=== PATIENT | female | born 1950 | race Caucasian/White ===

== ENCOUNTER → 2019-04-11 | Outpatient (CLI) | payer MEDICARE, OTHER | END | disposition home or self-care (01) | LOC: SHCH 13:00 | PROVIDERS: ATTEND Internal Medicine Cardiovascular Disease | DX: I67.9 Cerebrovascular disease, unspecified (principal) | CPT/HCPCS: 93880 ==

== ENCOUNTER 2021-02-03 06:52 | Day surgery (SDC) | payer MEDICARE, OTHER ==
[2021-01-24 14:03] VITALS: BP 137/70
[2021-01-25 12:43] LABS: BASOPHILS % (AUTO) 0.9 % (0.0-5.0); EOSINOPHILS % (AUTO) 1.4 % (0.0-8.0); HEMATOCRIT 41.9 % (36-48); LYMPHOCYTES % (AUTO) 26.3 % (21.0-51.0); MEAN CORPUSCULAR HEMOGLOBIN 29.7 pg (27.0-33.0); MEAN CORPUSCULAR HGB CONC 31.3 g/dL (32.0-36.0); MONOCYTES % (AUTO) 8.3 % (3.0-13.0); NEUTROPHILS % (AUTO) 62.5 % (40.0-77.0); PLATELET COUNT (AUTO) 286 K/uL (130-400); RED BLOOD CELL COUNT(AUTO) 4.41 MIL/uL (4.00-5.50); RED CELL DISTRIBUTION WIDTH 14.4 % (11.0-15.5)
[2021-01-25 12:54] LABS: CREATININE 0.7 mg/dL (0.5-1.5); POTASSIUM 4.3 mmol/L (3.5-5.1)
[2021-01-25 13:12] LABS: INR 0.91 (0.85-1.15)
[2021-01-25 13:13] LABS: PARTIAL THROMBOPLASTIN TIME 24.8 SEC (26.3-35.5)
[~2021-02-03] VITALS: Ht 152.4 cm; Wt 65.3 kg
[2021-02-03] VITALS (9 sets, daily range): BP systolic 103–141; BP diastolic 53–78
[~2021-02-03 06:52] MED LIST: AMLO-257 PO; ATOR-2 PO; BACL10TA PO; BISA10SU11 RC; BRIM5DRO OP; DEXT1DRO OP; FLUO20CA30 PO; HYDR12.54 PO; IBUP-2784 PO; LEVO88CA4 PO; MAGN400O17 PO; MECL-160 PO; MEMA5TAB42 PO; METO-409 PO; ONDA4TAB10 PO; cholecalciferol PO
[2021-02-03] MEDS ORDERED: 0.9%NACL 1000ML 1,000 ML IV ONE (07:59)
[2021-02-03] MEDS ORDERED: HEPARIN 10,000 UNIT/10ML (1,000 UNIT/ML) VIAL ONE (09:06)
[2021-02-03] MEDS ORDERED: LIDOCAINE HCL 400MG/20ML VIAL ONE (09:07)
[2021-02-03] MEDS ORDERED: MIDAZOLAM HCL 1 MG/ML 2ML VIAL ONE ×2 (09:07→11:03)
[2021-02-03] MEDS ORDERED: MEPERIDINE-PF 25 MG/ML SYG ONE ×2 (09:07→11:03)
== END 2021-02-03 16:00 | disposition home or self-care (01) ==
LOC: DAH 06:52
PROVIDERS: ATTEND Internal Medicine Cardiovascular Disease
DX: I47.1 Supraventricular tachycardia (principal); I10 Essential (primary) hypertension; E78.5 Hyperlipidemia, unspecified; E03.9 Hypothyroidism, unspecified; Z79.01 Long term (current) use of anticoagulants; Z79.82 Long term (current) use of aspirin; Z79.890 Hormone replacement therapy; Z98.890 Other specified postprocedural states
CPT/HCPCS: 36415; 80048; 85025; 85610; 85730; 93005; 93613; 93621; 93653; A4215; A4216; A4221; A4222; A4223 ×3; A4606; A4649 ×2; A4663; C1730 ×4; C1732; C1894 ×5; J1644 ×2; J2175 ×2; J2250 ×2; J3490; J7030; 99156; 99157

== ENCOUNTER 2022-06-23 06:21 | Day surgery (SDC) | payer MEDICARE, OTHER ==
[2022-06-21 08:52] VITALS: BP 125/57
[2022-06-21 16:10] LABS: BASOPHILS % (AUTO) 0.9 % (0.0-5.0); EOSINOPHILS % (AUTO) 2.3 % (0.0-8.0); HEMATOCRIT 43.3 % (36-48); LYMPHOCYTES % (AUTO) 27.7 % (21.0-51.0); MEAN CORPUSCULAR HEMOGLOBIN 29.3 pg (27.0-33.0); MEAN CORPUSCULAR HGB CONC 31.6 g/dL (32.0-36.0); MEAN CORPUSCULAR VOLUME 92.7 fL (79-99); MONOCYTES % (AUTO) 11.7 % (3.0-13.0); NEUTROPHILS % (AUTO) 57.1 % (40.0-77.0); PLATELET COUNT (AUTO) 332 K/uL (130-400); RED BLOOD CELL COUNT(AUTO) 4.67 MIL/uL (4.00-5.50); RED CELL DISTRIBUTION WIDTH 14.1 % (11.0-15.5); WHITE BLOOD COUNT (AUTO) 12.2 K/uL (4.8-10.8)
[2022-06-21 16:22] LABS: CREATININE 0.8 mg/dL (0.5-1.5); POTASSIUM 4.7 mmol/L (3.5-5.1)
[2022-06-21 16:40] LABS: INR 0.93 (0.85-1.15); PROTHROMBIN TIME 9.5 SEC (9.6-11.6)
[2022-06-21 16:41] LABS: PARTIAL THROMBOPLASTIN TIME 24.8 SEC (26.3-35.5)
[2022-06-23] VITALS (7 sets, daily range): BP systolic 128–142; BP diastolic 58–72
[~2022-06-23] VITALS: Ht 152.4 cm; Wt 69.2 kg
[~2022-06-23 06:21] MED LIST changes: +0.9%NACL 1000ML 1,000 ML IV ONE; -AMLO-257 PO; +APIX5TAB PO; +ASPI-1443 PO; -BACL10TA PO; -BISA10SU11 RC; -BRIM5DRO OP; +CHOL100020 PO; +DESL5TAB45 PO; -DEXT1DRO OP; -IBUP-2784 PO; -MAGN400O17 PO; -MECL-160 PO; -ONDA4TAB10 PO; -cholecalciferol PO
[2022-06-23 06:37] LABS: HEMATOCRIT 41.9 % (36-48); MEAN CORPUSCULAR HEMOGLOBIN 28.9 pg (27.0-33.0); MEAN CORPUSCULAR HGB CONC 31.5 g/dL (32.0-36.0); MEAN CORPUSCULAR VOLUME 91.9 fL (79-99); PLATELET COUNT (AUTO) 329 K/uL (130-400); RED BLOOD CELL COUNT(AUTO) 4.56 MIL/uL (4.00-5.50); RED CELL DISTRIBUTION WIDTH 14.3 % (11.0-15.5); WHITE BLOOD COUNT (AUTO) 10.8 K/uL (4.8-10.8)
[2022-06-23 06:48] LABS: EOSINOPHILS % (AUTO) 2.3 % (0.0-8.0); LYMPHOCYTES % (AUTO) 28.1 % (21.0-51.0); MONOCYTES % (AUTO) 10.2 % (3.0-13.0); NEUTROPHILS % (AUTO) 58.1 % (40.0-77.0)
[2022-06-23] MEDS ORDERED: LIDOCAINE HCL 1% 20 ML VIAL ONE (07:19)
[2022-06-23] MEDS ORDERED: MIDAZOLAM HCL 1 MG/ML 2ML VIAL ONE ×2 (07:20→08:10)
[2022-06-23] MEDS ORDERED: MEPERIDINE-PF 25 MG/ML SYG ONE (07:20)
[2022-06-23] MEDS ORDERED: BUPIVACAINE/PF 0.25% 30ML VIAL IJ ONE (07:29)
[2022-06-23] MEDS ORDERED: MEPERIDINE-PF 50 MG/ML SYG ONE ×2 (07:40→08:10)
[2022-06-23] MEDS ORDERED: TRAM50TA4 PO (09:13)
[2022-06-23] MEDS ORDERED: ACETAMINOPHEN WITH CODEINE 1 TAB TAB PO PRN (09:30)
== END 2022-06-23 11:00 | disposition home or self-care (01) ==
LOC: DAH 06:21
PROVIDERS: ATTEND Internal Medicine Cardiovascular Disease
DX: Z45.09 Encounter for adjustment and management of other cardiac device (principal); I63.89 Other cerebral infarction; I47.1 Supraventricular tachycardia; I10 Essential (primary) hypertension; E78.5 Hyperlipidemia, unspecified; E03.9 Hypothyroidism, unspecified; Z79.82 Long term (current) use of aspirin; Z79.890 Hormone replacement therapy; Z79.899 Other long term (current) drug therapy; Z90.49 Acquired absence of other specified parts of digestive tract; Z90.710 Acquired absence of both cervix and uterus; Z98.890 Other specified postprocedural states; Z79.01 Long term (current) use of anticoagulants
CPT/HCPCS: 80048; 85025 ×2; 85610; 85730; 36415 ×2; 93005; 33285; 33286; A4649; C1764; J7030; J3490; J2250; J2175 ×2; A4215; A6402; A4222; A4221; A4663; A4216; A6258; A4606; A4223 ×3; 99156; 99157